=== PATIENT | male | born 1990 | race Two or more races ===

== ENCOUNTER 2019-03-30 09:56 | Emergency (ER) | payer SELFPAY ==
[~2019-03-30] VITALS: Ht 177.8 cm; Wt 90.7 kg
[2019-03-30] MEDS ORDERED: SODIUM CHLORIDE 0.9% 1,000 ML IV ONE (10:25)
[2019-03-30] MEDS ORDERED: KETOROLAC TROMETH 15 mg/ml 1ML VL IV ONE (10:30)
[2019-03-30] MEDS ORDERED: PROMETHAZINE HCL 25 MG/ML 1ML IV PRN (10:30)
[2019-03-30 11:11] LABS: Albumin 4.4 g/dL (3.4-5.0); BUN/Creatinine Ratio 12.4; Calcium 9.2 mg/dL (8.5-10.1); Potassium 3.4 mmol/L (3.5-5.1)
[2019-03-30 11:13] LABS: Bilirubin, Total 1.1 mg/dL (0.2-1.0); Total Protein 8.3 g/dL (6.4-8.2)
[2019-03-30 11:22] LABS: Basophils # (auto) 0.1 uL; Basophils % (auto) 0.4 % (0.0-2.0); Eosinophils # (auto) 0.1 uL; Eosinophils % (auto) 0.4 % (0.0-7.0); Hematocrit 49.5 % (41.0-53.0); Hemoglobin 16.5 g/dL (13.5-17.5); Lymphocytes # (auto) 1.4 uL; Lymphocytes % (auto) 11.4 % (10.0-50.0); Mean Corpuscular Hemoglobin 32.2 pg (28.0-32.0); Mean Corpuscular Hgb Conc. 33.3 g/dL (32.0-36.0); Mean Corpuscular Volume 96.7 fL (80.0-100.0); Monocytes # (auto) 0.9 uL; Monocytes % (auto) 7.3 % (0.0-12.0); Neutrophils # (auto) 9.9 uL; Neutrophils % (auto) 80.5 % (37.0-80.0); Nucleated Red Blood Cells % 0.1 %; Platelet Count (auto) 248 10^3/uL (140-450); Red Blood Cells 5.12 10^6/uL (4.5-5.90); Red Cell Distribution Width 13.3 % (11.8-14.3); White Blood Cell 12.2 10^3/uL (4.4-10.8)
[2019-03-30 12:19] LABS: Urine WBC None Seen /hpf (0 - 3)
[2019-03-30] MEDS ORDERED: POTASSIUM EFFERVESENT TAB 25 MEQ PO ONE (13:00)
[2019-03-30 13:06] LABS: Alcohol, Urine < 3.0 mg/dL (0-5); Amphetamine Screen, Urine POSITIVE (NEGATIVE); Barbiturate Scree,Urine NEGATIVE (NEGATIVE); Benzodiazephine Screen, Urine NEGATIVE (NEGATIVE); Cannabinoid Screen, Urine POSITIVE (NEGATIVE); Cocaine Screen, Urine POSITIVE (NEGATIVE)
[2019-03-30 13:09] VITALS: BP 142/75
[2019-03-30 13:11] LABS: Urine Bacteria NONE SEEN /hpf (None Seen); Urine Blood 2+ /uL (Negative); Urine Mucus FEW (None Seen); Urine Specific Gravity 1.036 (1.001-1.035)
[2019-03-30 13:13] LABS: Opiate Scree,Urine NEGATIVE (NEGATIVE); Phencyclidine Screen, Urine NEGATIVE (NEGATIVE)
== END 2019-03-30 15:21 | disposition home or self-care (01) ==
LOC: EDBD 09:56 → ER 10:01
DX: N20.1 Calculus of ureter (principal); E87.6 Hypokalemia; K40.20 Bilateral inguinal hernia, without obstruction or gangrene, not specified as recurrent; F15.10 Other stimulant abuse, uncomplicated; F12.10 Cannabis abuse, uncomplicated; F14.10 Cocaine abuse, uncomplicated; F17.210 Nicotine dependence, cigarettes, uncomplicated
CPT/HCPCS: 36415; 71046; 74176; 80053; 80307; 81001; 82150; 83690; 83735; 85025; 96374; 99284; J1885; J7030